=== PATIENT | male | born 1990 | race Caucasian/White ===

== ENCOUNTER 2021-03-07 08:02 | Emergency (ER) | payer SELFPAY ==
[~2021-03-07] VITALS: Ht 170.2 cm; Wt 84.8 kg
--- NOTE | 2021-03-07 10:29 | PHYS DOC ---
General Adult EDM: Chief Complaint: COUGH HPI: HPI: Patient is a 30-year-old male who presents to the emergency department for 3-day history of nasal congestion/drainage, sore throat, headaches, diminished taste and smell, and body aches. Patient reports that his son was sick and was tested for Covid and it was negative. Patient has been vaccinated x2 with [employer]. Patient has not been tested for COVID-19. He has no medical history does not take any medications daily, he is a non-smoker. Patient denies cough, fever, shortness of breath, chest pain, nausea, vomiting. (ALEXUS BARILLAS APRN) Review of Systems: Review of Systems: Constitutional: See HPI HENT: See HPI Respiratory: See HPI Cardiovascular: See HPI GI: See HPI Musculoskeletal: See HPI (ALEXUS BARILLAS APRN) Physical Exam: PE: Constitutional: Well developed, well nourished, no acute distress, non-toxic appearance. [] HENT: Normocephalic, atraumatic, bilateral external ears normal, 2+ tonsillar enlargement, postnasal drainage, uvula midline, no trismus, no phonation changes, erythematous oropharynx, oropharynx moist, no oral exudates, nose normal. [] Eyes: PERRL, EOMI, conjunctiva normal, no discharge. [] Neck: Normal range of motion, no tenderness, no nuchal rigidity, bilateral tonsillar lymphadenopathy, supple, no stridor. [] Cardiovascular:Heart rate regular rhythm, no murmur [] Lungs & Thorax: Bilateral breath sounds clear to auscultation [] Abdomen: Bowel sounds normal, soft, no tenderness, no masses, no pulsatile masses. [] Skin: Warm, dry, no erythema, no rash. [] Back: Normal range of motion Extremities: No tenderness, no cyanosis, no clubbing, ROM intact, no edema. [] Neurologic: Alert and oriented X 3, normal motor function, normal sensory function, no focal deficits noted. [] Psychologic: Affect normal, judgement normal, mood normal. [] (ALEXUS BARILLAS APRN) EKG: EKG: [] (ALEXUS BARILLAS APRN) Radiology/Procedures: Radiology/Procedures: [] (ALEXUS BARILLAS APRN) Heart Score: C/O Chest Pain: No Risk Factors: Risk Factors: DM, Current or recent (<one month) smoker, HTN, HLP, family history of CAD, obesity. Risk Scores: Score 0 - 3: 2.5% MACE over next 6 weeks - Discharge Home Score 4 - 6: 20.3% MACE over next 6 weeks - Admit for Clinical Observation Score 7 - 10: 72.7% MACE over next 6 weeks - Early Invasive Strategies (ALEXUS BARILLAS APRN) Course & Med Decision Making: Course & Med Decision Making Pertinent Labs and Imaging studies reviewed. (See chart for details) [] Patient presents to the emergency department for complaints of nasal congestion/drainage, sore throat, headaches, body aches and diminished taste and smell. Patient's vital signs are stable and he is in no acute distress. He has no medical history. Patient be tested for influenza, strep and COVID-19. Rapid Covid and strep test were negative. Patient is flu a positive. Patient states that his symptoms started 3 days ago so he is unable to receive Tamiflu. Patient educated on symptomatic treatment for his symptoms. I discussed with patient all findings and diagnostic testing as well as the need to follow-up with PCP for further evaluation and treatment or return to the ER if any new or worsening symptoms. Strict return precautions were also discussed at length. Patient voiced understanding and agreement with the plan. Patient is hemodynamically stable at the time of disposition. (ALEXUS BARILLAS APRN) Dragon Disclaimer: Dragon Disclaimer: This electronic medical record was generated, in whole or in part, using a voice recognition dictation system. (ALEXUS BARILLAS APRN) Attending Co-Sign The patient was seen and interviewed as well as examined at the bedside. The chart was reviewed. The case was discussed. Agree with the plan of care. (JOCELINE ESCOBAR DO) Departure Departure: Impression: Primary Impression: Influenza A Disposition: HOME / SELF CARE / HOMELESS Condition: GOOD Referrals: PCP,MARCEILNO (PCP) Patient Instructions: Influenza, Adult Additional Instructions: You are seen in the emergency department for multiple complaints consistent with a viral infection. Your rapid strep test was negative. Your rapid influenza test was positive for influenza A. Your COVID-19 test was negative. Treatment for your symptoms include warm salt water gargles for your sore throat, Tylenol and/or ibuprofen for your body aches, Flonase and Mucinex for any nasal congestion, if you have nasal drainage she can take Sudafed. Please follow-up with your primary care provider tomorrow regarding your ER visit. Please return to the emergency department if you develop worsening of your symptoms, shortness of breath, high fevers refractory to treatment, intractable nausea or vomiting, chest pain. ALEXUS BARILLAS APRN Mar 07, 2021 10:29 JOCELINE ESCOBAR DO Mar 08, 2021 06:47
[2021-03-07 11:19] LABS: INFLUENZA B PATIENT NEGATIVE (NEGATIVE)
[2021-03-07 11:26] LABS: INFLUENZA A PATIENT POSITIVE (NEGATIVE)
[2021-03-07 11:40] VITALS: BP 121/76
== END 2021-03-07 11:45 | disposition home or self-care (01) ==
LOC: ER 08:02
DX: J10.1 Influenza due to other identified influenza virus with other respiratory manifestations (principal); Z20.822 Contact with and (suspected) exposure to COVID-19
CPT/HCPCS: 87070; 87426; 87804; 87880; 99283; C9803; U0003